=== PATIENT | male | born 1975 | race Caucasian/White ===

== ENCOUNTER 2017-06-02 21:26 | Observation (INO) ==
[2017-06-02] MEDS ORDERED: SALINE FLUSH 10ml SYRINGE IVF PRN (23:01)
--- OUTSIDE RECORDS SUMMARY | 2017-06-02 23:07 | External Medical Summary | Referral Summary ---
:1975 [facility] Address [address] [place] [address] Encounter VC Date(s): 02/01/16 - 02/01/16 [facility] [address] [place] [id number] - Discharge Diagnosis: Strain of right shoulder Discharge Disposition: 01-Home or Self Care Attending Physician: Panfilo Woodard MD Attending Physician: Provider, Immediate Care Admitting Physician: Provider, Immediate Care Vital Signs Most recent to oldest [Reference Range]: 1 Temperature Oral [35.8-37.3 degC] 36.4 degC (02/01/16 5:39 PM) Peripheral Pulse Rate [60-100 bpm] 56 bpm *LOW* (02/01/16 5:39 PM) Blood Pressure [90-140/60-90 mmHg] 98/64 mmHg (02/01/16 5:39 PM) SpO2 97 % (02/01/16 5:39 PM) Problem List No data available for this section Allergies, Adverse Reactions, Alerts No Known Medication Allergies Medications No Known Medications Results No data available for this section Immunizations No data available for this section Procedures No data available for this section Social History Social History Type Response Smoking Status Current every day smoker; Type: Cigarettes Assessment and Plan Extracted from: Title: Office Visit Note Author: Panfilo Woodard MD Date: 02/01/16 Assessment/Plan 1.Strain of right shoulder This was most likely a strain of the right shoulder possibleorpossibly a sprain of theAC joint. We will proceed with conservative treatmentas it appearsthat hisrotator cuff is intact. He was instructed to take 800 mg of ibuprofen every 8 hours and will obtain OTC. He is to use ice20 minutes on and 20 minutes off. He was instructed to continue with early mobilization exercisesandwas instructed on how to do them. He was counseled not to use a arm sling. If symptoms do not improvehe was encouraged to establish care with a PCPfor follow-up.
[2017-06-02] MEDS ORDERED: NS 1,000 ML IV SCH (23:15)
--- NOTE | 2017-06-02 23:35 | Emergency Department Report ---
General Adult HPI - General Chief complaint: Medical Emergency Stated complaint: high blood sugars Time Seen by Provider: 06/02/17 22:55 Source: patient, RN notes reviewed, old records reviewed Mode of arrival: ambulatory Limitations: no limitations - History of Present Illness HPI narrative: 41yo man presents to the ER tonight for evaluation of high blood sugar. Pt took his blood sugar tonight on a friend's meter; it read 'high'. Pt has had 6-9 months of sx of hyperglycemia (visual disturbances, excess urination, excess thirst, craving sweet foods, etc). Pt has a strong FHx of DM (some NIDDM and some IDDM); he used to take his BG intermittently, but quit 4 years ago, because the readings were always 'good'. Last evaluated by a physician >10years ago. MD complaint: Hyperglycemia Onset (ago): month(s) (6-9) - Related Data Home Medications Medication Instructions Recorded Confirmed No known Home medications [No home 06/03/17 06/03/17 meds] Allergies Allergy/AdvReac Type Severity Reaction Status Date / Time No Known Allergies Allergy Verified 06/03/17 00:15 Review of Systems All systems: reviewed and negative except as stated Constitutional: Reports: as per HPI, weakness. Denies: fever, chills, weight change, night sweats Eyes: Reports: as per HPI, vision change. Denies: eye pain, eye discharge Endocrine: Reports: as per HPI, fatigue, polydipsia, polyuria. 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 Medical History Updates: Denies - Social History Smoking status: Current every day smoker Physical Exam - Limitations Limitations: no limitations - General General appearance: alert, in no apparent distress - Normal Exams: Head:: Normocephalic without trauma Eyes:: Pupils are PERRLA w/ EOMI, No scleral icterus, irritation, or foreign bodies noted ENMT:: No facial trauma, nasal exudates, pharyngeal erythema, or exudates are noted Neck:: Full range of motion, without adenopathy Chest/Respirations:: Clear all mendiola, with good airflow, and symmetry bilaterally Cardiovascular:: Regular rate and rhythm, without murmur or gallop, Pulses 2+ all extremities, capillary refill, <2 seconds all extremities Lymphatic:: No lymphadenopathy Musculoskeletal:: No tenderness, or deformity noted Integumentary:: No rashes, hives, or bruising noted Neurological:: Patient is alert, and oriented, cranial nerves, motor/sensory/ cerebellar, exams w/o gross deficits Psychiatric:: Patient exhibits, appropriate attention Course - Consultations Consultation #1: Govind Telemed: Will admit for obs, education, and rx. Time: 01:20 Vital Signs Temperature 99.5 F 06/02/17 21:50 Pulse Rate 81 06/02/17 21:50 Respiratory Rate 18 06/02/17 21:50 Blood Pressure 129/83 06/02/17 21:50 Pulse Oximetry 96 06/02/17 21:50 Temperature 99.5 F 06/02/17 21:50 Pulse Rate 81 06/02/17 21:50 Respiratory Rate 18 06/02/17 21:50 Blood Pressure 129/83 06/02/17 21:50 Pulse Oximetry 96 06/02/17 21:50 Medical Decision Making - Differential Diagnosis DKA, HHS, Hyperglycemia, Pot[place]ia, Hyponatremia, Hyperkalemia - Medical Records Medical records reviewed: Yes: I reviewed the patient's medical records. - Lab Data Lab results reviewed: Yes: I reviewed the patient's lab results. Result diagrams: 06/02/17 23:14 06/03/17 00:34 Lab Results 06/02/17 06/02/17 06/02/17 Range/Units 22:25 23:14 23:14 WBC 8.6 (4.5-11.0) T/MM3 RBC 4.61 (4.50-5.90) M/MM3 Hgb 13.7 (13.5-17.5) GM/DL Hct 38.5 L (41-53) % MCV 83.5 (80-100) UM3 MCH 29.7 (26-34) UUG MCHC 35.6 (31-37) GM/DL RDW Std Deviation 35.0 L (36.9-50.2) FL Plt Count 323 (130-400) T/MM3 MPV 9.7 (9.4-12.4) UM3 Immature Gran % (Auto) 0.2 (0.0-0.5) % Neut % (Auto) 66.0 (33-66) % Lymph % (Auto) 24.3 (23-45) % [place] % (Auto) 8.6 (0-9.0) % Eos % (Auto) 0.7 (0-4) % Baso % (Auto) 0.2 (0-2) % Neut # (Auto) 5.7 (1.8-7.7) T/MM3 Lymph # (Auto) 2.1 (1-4.8) T/MM3 [place] # (Auto) 0.7 (0-0.8) T/MM3 Eos # (Auto) 0.1 (0-0.5) T/MM3 Baso # (Auto) 0.0 (0-0.2) T/MM3 Abs Immat Gran (auto) 0.02 (0.00-0.03) T/MM3 Turbidity (0-20) Sodium (134-144) MEQ/L Potassium (3.6-5) MEQ/L Chloride (98-107) MEQ/L Carbon Dioxide (22-30) MEQ/L Anion Gap (5-15) MEQ/L BUN (9-20) MG/DL Creatinine (0.8-1.5) mg/dL GFR Calculation BUN/Creatinine Ratio (6-26) RATIO Glucose (75-110) MG/DL Glucometer > 500 (65-110) mg/dL Calculated Osmolality (261-280) MOSM/KG Calcium (8.4-10.2) MG/DL Magnesium (1.6-2.3) MG/DL Total Bilirubin (0.20-1.30) MG/DL Icterus Index (0-7) AST (17-59) U/L ALT (1-50) U/L Alkaline Phosphatase (38-126) U/L Total Protein (6.3-8.2) g/dL Albumin (3.5-5.0) g/dL Globulin (2.4-3.6) G/DL Albumin/Globulin Ratio (1.1-2.2) RATIO Specimen Hemolysis (0-25) Ur Collection Type Urine, void-cc/notcc Urine Color Yellow (YELLOW) Urine Clarity Clear Urine pH 5.0 (5.0-8.0) Ur Specific [place] <=1.005 L (1.015-1.025) Urine Protein Negative (NEGATIVE) Urine Glucose (UA) 3+ A (NEGATIVE) Urine Ketones Negative (NEGATIVE) Urine Occult Blood Negative (NEGATIVE) Urine Nitrate Negative (NEGATIVE) Urine Bilirubin Negative (NEGATIVE) Urine Urobilinogen 0.2 (NORMAL) EU/DL Ur Leukocyte Esterase Negative (NEGATIVE) Urine RBC None seen (0-3) /HPF Urine WBC None seen (0-5) /HPF Ur Squamous Epith Cells 0-5 Urine Bacteria None seen (NEGATIVE) Ur Culture Indicated? Cult not indicated B-Hydroxybutyrate (0-0.6) MMOL/L 06/02/17 06/03/17 06/03/17 Range/Units 23:14 00:34 01:14 WBC (4.5-11.0) T/MM3 RBC (4.50-5.90) M/MM3 Hgb (13.5-17.5) GM/DL Hct (41-53) % MCV (80-100) UM3 MCH (26-34) UUG MCHC (31-37) GM/DL RDW Std Deviation (36.9-50.2) FL Plt Count (130-400) T/MM3 MPV (9.4-12.4) UM3 Immature Gran % (Auto) (0.0-0.5) % Neut % (Auto) (33-66) % Lymph % (Auto) (23-45) % [place] % (Auto) (0-9.0) % Eos % (Auto) (0-4) % Baso % (Auto) (0-2) % Neut # (Auto) (1.8-7.7) T/MM3 Lymph # (Auto) (1-4.8) T/MM3 [place] # (Auto) (0-0.8) T/MM3 Eos # (Auto) (0-0.5) T/MM3 Baso # (Auto) (0-0.2) T/MM3 Abs Immat Gran (auto) (0.00-0.03) T/MM3 Turbidity < 20 < 20 (0-20) Sodium 130 L 135 (134-144) MEQ/L Potassium 4.4 4.2 (3.6-5) MEQ/L Chloride 89 L 94 L (98-107) MEQ/L Carbon Dioxide 27 27 (22-30) MEQ/L Anion Gap 14 14 (5-15) MEQ/L BUN 21.0 H 20.0 (9-20) MG/DL Creatinine 0.6 L 0.6 L (0.8-1.5) mg/dL GFR Calculation 147 147 BUN/Creatinine Ratio 35 H 33 H (6-26) RATIO Glucose 722 H* 526 H (75-110) MG/DL Glucometer 374 (65-110) mg/dL Calculated Osmolality 289 H 287 H (261-280) MOSM/KG Calcium 9.5 9.3 (8.4-10.2) MG/DL Magnesium 2.0 (1.6-2.3) MG/DL Total Bilirubin 0.30 (0.20-1.30) MG/DL Icterus Index < 2 < 2 (0-7) AST 29 (17-59) U/L ALT 53 H (1-50) U/L Alkaline Phosphatase 144 H (38-126) U/L Total Protein 7.6 (6.3-8.2) g/dL Albumin 4.6 (3.5-5.0) g/dL Globulin 3.0 (2.4-3.6) G/DL Albumin/Globulin Ratio 1.5 (1.1-2.2) RATIO Specimen Hemolysis < 15 < 15 (0-25) Ur Collection Type Urine Color (YELLOW) Urine Clarity Urine pH (5.0-8.0) Ur Specific [place] (1.015-1.025) Urine Protein (NEGATIVE) Urine Glucose (UA) (NEGATIVE) Urine Ketones (NEGATIVE) Urine Occult Blood (NEGATIVE) Urine Nitrate (NEGATIVE) Urine Bilirubin (NEGATIVE) Urine Urobilinogen (NORMAL) EU/DL Ur Leukocyte Esterase (NEGATIVE) Urine RBC (0-3) /HPF Urine WBC (0-5) /HPF Ur Squamous Epith Cells Urine Bacteria (NEGATIVE) Ur Culture Indicated? B-Hydroxybutyrate 0.10 (0-0.6) MMOL/L - Radiology Data Radiology results reviewed: Yes: I reviewed the patient's radiology results. - EKG Data EKG #1 EKG attestation: Yes: I reviewed and interpreted this EKG. EKG shows normal: sinus rhythm, axis, intervals, QRS complexes, ST-T waves Rate: normal Interpretation: normal EKG Disposition Clinical Impression: Hyperglycemia Disposition: To OBS [facility] [place] Print Language: Zambian Condition: Improved Prescriptions: No Action No known Home medications [No home meds] 0 #0 misc Time of Disposition: 01:27 - Seen By: physician
[2017-06-02] MEDS ORDERED: POTASSIUM CHLORIDE INJ 20 MEQ in NS 1,000 ML IV SCH (23:45)
[2017-06-02] MEDS ORDERED: INSULIN REGULAR, HUMAN 100 UNIT/ML INJECTION IVP ONE (23:45)
[2017-06-02] MEDS ORDERED: INSULIN REGULAR, HUMAN 100 UNIT in NS 100 ML IV PRN (23:45)
[2017-06-03] MEDS ORDERED: GLUCOSE ORAL GEL 40% 37.5gm PO PRN (02:12)
[2017-06-03] MEDS ORDERED: ACETAMINOPHEN 325 MG TABLET PO PRN (02:12)
[2017-06-03] MEDS ORDERED: ONDANSETRON 4 MG/2 ML INJECTION IVP PRN (02:12)
[2017-06-03] MEDS ORDERED: DEXTROSE 50% SYRINGE 50ml (1 AMP) IVP PRN (02:12)
--- NOTE | 2017-06-03 02:44 | History & Physical Report ---
History of Present Illness Date: 06/03/17 Chief complaint: Hyperglycemia HPI: Mr Peng is a 41 year old male who has presented to the emergency department this evening with concerns for possible high blood sugar. He states he has multiple family members who have diabetes. He has had approximately 6 - 9 months of blurry vision, polyuria and polydipsia, and unintentional weight loss. He started checking his blood sugars on a family member's glucometer and came to the ER late this evening when readings continued to demonstrate high blood sugars. He apparently has no primary care physician. Workup in the emergency department has revealed an elevated blood sugar in the 700s. Metabolic profile shows no anion gap. After IV fluids and 8 units of regular insulin, his blood sugar is now 374 mg/dL on Accu-Chek. Unfortunately, he has no primary care physician with which to follow up. Thus, at the request of the ER provider, this patient will be placed in the hospital tonight for observational purposes, diabetes education and initiation of insulin. This patient was seen during this encounter via the use of telemedicine technology Review of Systems All systems PM: 10-point ROS was reviewed, no additional remarkable complaints except Past Medical History Medical History Updates: Denies Family History: DM in many family members Family History Updates: .. - Social History Smoking status: Current every day smoker Medications Home Medications Medication Instructions Recorded Confirmed Type No known Home medications [No home 06/03/17 06/03/17 History meds] Allergies Allergy/AdvReac Type Severity Reaction Status Date / Time No Known Allergies Allergy Verified 06/03/17 00:15 Exam Vital Signs: Temperature 99.5 F 06/02/17 21:50 Pulse Rate 80 06/02/17 23:30 Respiratory Rate 16 06/02/17 23:30 Blood Pressure 129/90 H 06/02/17 23:30 Pulse Oximetry 98 06/02/17 23:30 - Constitutional Present: no acute distress - Routine HEENT Exam Head: Present: normocephalic, atraumatic ENT: Present: mucous membranes dry - Routine Respiratory Exam Present: CTA bilaterally. Absent: accessory muscle use - Routine Cardiovascular Exam Present: RRR, no murmur - Routine Abdominal Exam Present: soft - Routine Extremities Exam Present: no edema - Routine Neurological Exam Present: alert, oriented X3 Results - Labs CBC & Chem 7: 06/02/17 23:14 06/03/17 00:34 Assessment and Plan (1) Hyperglycemia Current visit: Yes Status: Acute Assessment and Plan: Assessment New diagnosis of diabetes mellitus Mild dehydration Plan This patient will be placed under observation status to the medical floor. Will start a sliding insulin AC scale with meals, and order for 10 units of Levemir for later on tonight. He will need diabetes education. Most importantly, he will need a primary care physician to follow up with as determining an optimal insulin regimen is primarily performed on an outpatient basis. In the meantime , I will order a hemoglobin A1c and a lipid profile to follow up on. He has no home medications to reconcile. Clinical progress will be monitored, and supportive care will be provided. Changes to the aforementioned plan will be made this evening as necessary. - Physician Narrative Narrative: Date: 06/03/17 Time: 0241 Hospital Course Summary Disclaimer: The visit summary below is not to be considered part of the above Progress Note.
[2017-06-03] MEDS: NS 1,000 ML IV SCH ×2 (03:35→13:06)
[2017-06-03] MEDS: INSULIN ASPART 100unit/ml INJECTION SQ PRN ×2 (06:47→11:54)
--- NOTE | 2017-06-03 08:01 | XRay Report ---
Indication: Hyperglycemia PROCEDURE: XR chest 1V: Encounter: Initial Comparison: None FINDINGS: The lungs are clear. There is no abnormal airspace opacity, pleural effusion or pneumothorax identified. The heart size, pulmonary vasculature and mediastinum are within normal limits. No significant skeletal abnormality is seen. IMPRESSION: No acute cardiopulmonary abnormality. .
[2017-06-03] MEDS: METFORMIN 500 MG TABLET PO SCH ×2 (10:19→17:40)
--- NOTE | 2017-06-03 11:35 | History & Physical Report ---
History of Present Illness Date: 06/03/17 Chief complaint: elevated BS HPI: Mr Peng is a 41 year old male who has presented to the emergency department this evening with concerns for possible high blood sugar. He states he has multiple family members who have diabetes. He has had approximately 6 - 9 months of blurry vision, polyuria and polydipsia, and unintentional weight loss. He started checking his blood sugars on a family member's glucometer and came to the ER late this evening when readings continued to demonstrate high blood sugars. He apparently has no primary care physician. Workup in the emergency department has revealed an elevated blood sugar in the 700s. Metabolic profile shows no anion gap. After IV fluids and 8 units of regular insulin, his blood sugar is now 374 mg/dL on Accu-Chek. Unfortunately, he has no primary care physician with which to follow up. Thus, at the request of the ER provider, this patient will be placed in the hospital tonight for observational purposes, diabetes education and initiation of insulin. (per telemed doc documentation at admission) Patient was seen this morning. He is feeling fine other than urinary frequency. He has suspected he has diabetes over the last 6 months. States he' s had a 30-40 pound weight loss over the last 4 months. No other health problems that he is aware of. 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 Father and several siblings and cousins have diabetes. No significant history of cardiac disease. Family History Updates: reviewed - Social History Smoking status: Current some day smoker (states he ""quit smoking a month and a half ago", but reports he has smoked 6-7 cigarettes over the past 1.5 months) Substance use type: marijuana (several times a week), methamphetamine (last use was 6 days ago. Prior to that 3 weeks ago. States he is "quitting" now. 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 Previous to hospitalization he was living in [place].) Social history: Patient is single. Has 4 children - 2 live in [place], 1 in [place] and 1 with pt' s mother locally Patient has no primary care provider. Medications Home Medications Medication Instructions Recorded Confirmed Type No known Home medications [No home 06/03/17 06/03/17 History meds] Allergies Allergy/AdvReac Type Severity Reaction Status Date / Time No Known Allergies Allergy Verified 06/03/17 00:15 Exam Vital Signs: Temperature 97.7 F 06/03/17 07:49 Pulse Rate 62 06/03/17 08:00 Respiratory Rate 18 06/03/17 07:49 Blood Pressure 106/67 06/03/17 07:49 Pulse Oximetry 100 06/03/17 07:49 Height/Weight/BMI: Height 1.73 m Weight 78.3 kg - Constitutional Present: no acute distress, well nourished, well developed - Routine HEENT Exam Head: Present: normocephalic, atraumatic Eye: Present: EOMI, PERRL ENT: Present: mucous membranes moist, oropharynx clear Comments: Tongue piercing - Routine Neck Exam Present: supple. Absent: lymphadenopathy, thyromegaly - Routine Respiratory Exam Present: CTA bilaterally. Absent: wheezes - Routine Cardiovascular Exam Present: RRR, no murmur - Routine Abdominal Exam Present: soft, normoactive bowel sounds. Absent: tenderness, distended - Routine Extremities Exam Present: no edema, normal capillary refill Comments: Small corn at base of right fifth digit. Callused wound on the left lateral foot (distal fifth metatarsal) - Routine Skin Exam Present: dry, warm Comments: Dry skin, tattoos, lesions as documented under "extremity exam" - Routine Neurological Exam Present: alert, oriented X3, CN II-XII intact, sensory deficit (feet) - Routine Psychiatric Exam Present: normal affect, cooperative Results - Labs CBC & Chem 7: 06/03/17 08:47 06/03/17 00:34 Labs: Laboratory Tests 03/16/18 08:47 Triglycerides 104 Cholesterol 197 LDL Cholesterol, Calc 128.2 VLDL Cholesterol 20.8 HDL Cholesterol 48 Cholesterol/HDL Ratio 4.1 Laboratory Tests 06/02/17 23:14 AST 29 ALT 53 H Alkaline Phosphatase 144 H Laboratory Tests 06/03/17 08:47 Hemoglobin A1c 14.6 H Laboratory Tests 06/02/17 23:14 Ur Collection Type Urine, void-cc/notcc Urine Color Yellow Urine Clarity Clear Urine pH 5.0 Ur Specific [place] <=1.005 L Urine Protein Negative Urine Glucose (UA) 3+ A Urine Ketones Negative Urine Occult Blood Negative Urine Nitrate Negative Urine Bilirubin Negative Urine Urobilinogen 0.2 Ur Leukocyte Esterase Negative Urine RBC None seen Urine WBC None seen Ur Squamous Epith Cells 0-5 - Imaging and Cardiology Chest x-ray Additional comments: Date of Exam: 06/02/17 Indication: Hyperglycemia PROCEDURE: XR chest 1V: FINDINGS: The lungs are clear. There is no abnormal airspace opacity, pleural effusion or pneumothorax identified. The heart size, pulmonary vasculature and mediastinum are within normal limits. No significant skeletal abnormality is seen. IMPRESSION: No acute cardiopulmonary abnormality. Assessment and Plan (1) Type II diabetes mellitus Current visit: Yes Status: Acute (2) Hyperglycemia Current visit: Yes Assessment and Plan: Assessment New diagnosis of Type 2 diabetes mellitus (A1c 14.6 ) Mild dehydration-POA Non-healing diabetic foot ulcer Hyponatremia-POA (resolved) Plan Patient has been admitted to observation status under the care of the hospitalist service, Dr. Simpson attending. He had 10 units of Levemir last evening. He is currently on AC sliding scale insulin and had his first metformin dose this morning. He had 5 units NovoLog prior to breakfast, and will receive 4 units based on the sliding scale prior to lunch. Will add another 4 U to this dose. printer apprentice has been consulted. Labs stable. Normal saline running at 100 mL per hour. SCDs for DVT prophylaxis. Patient wishes to be a full code. Will plan to DC on metformin w/ close OP f-u if pt is doing well. Case management will need to assist in establishing patient with PCP for outpatient follow-up. DVT Prophylaxis: SCD's Resuscitation Status: Full Code - Physician Narrative Physician: Murray Simpson MD Narrative: Date: 06/03/17 Time: 1515 Have independently interviewed and examined pt. Chart reviewed. Case discussed with CM and my PA. Care plan developed with my supervision; agree with above. 41 y/o male presents to ED for evaluation of increasing urination, thirst, and blurred vision. Significant diabetes in family. Reports 30# weight loss-some intentional, some unintentional. Does like to eat candy/sweets. Evaluated in ED. Blood sugars markedly elevated. Not acidotic or showing signs of DKA. Placed in OBS to initiate treatment of his newly diagnoses DM. Lungs: clear CV: regular AB: soft nt/nd MSE: awake alert appropriate Plan: OBS. Diabetic education/dietary instruction. IVF to maintain hydration. Start Metformin to help glycemic control. Stress the importance of outpatient diabetic management. Work on pt [facility] with [facility]. Hospital Course Summary Disclaimer: The visit summary below is not to be considered part of the above Progress Note. Hospital Course: 06/03/17 - Hospital admission Patient has been admitted to observation status under the care of the hospitalist service, Dr. Simpson attending. He had 10 units of Levemir last evening. He is currently on AC sliding scale insulin and had his first metformin dose this morning. He had 5 units NovoLog prior to breakfast, and will receive 4 units based on the sliding scale prior to lunch. Will add another 4 U to this dose. printer apprentice has been consulted. Labs stable. Normal saline running at 100 mL per hour. SCDs for DVT prophylaxis. Patient wishes to be a full code. Will plan to DC on metformin w/ close OP f-u if pt is doing well. Case management will need to assist in establishing patient with PCP for outpatient follow-up.
[2017-06-03] MEDS ORDERED: INSULIN ASPART 100unit/ml INJECTION SQ ONE (12:07)
[2017-06-03 15:48] VITALS: BP 127/84; PULSE 66; RESP 16; TEMP 97.3; O2SAT 98
[2017-06-03] MEDS ORDERED: PNEUMOCOCCAL 13 VACCINE 0.5ml INJECTION IM ONE (15:51)
[2017-06-03] MEDS ORDERED: INFLUENZA VAC QIV 2017-18 (Fluarix*)(>=3yo) 0.5ml IM ONE (15:51)
--- NOTE | 2017-06-03 16:28 | Discharge Summary ---
Discharge Information Date of admission: 06/03/17 01:33 Anticipated date of discharge: 06/03/17 Attending Physician: Murray Simpson MD Primary care physician: [facility]. Consults: water tender - Discharge Diagnosis (1) Type II diabetes mellitus Status: Acute New diagnosis of Type 2 diabetes mellitus (A1c 14.6 ) Mild dehydration-POA Non-healing diabetic foot ulcer Hyponatremia-POA (resolved) - Laboratory Labs: Admission labs 06/02/17 06/02/17 23:14 23:14 WBC 8.6 RBC 4.61 Hgb 13.7 Hct 38.5 L Plt Count 323 Sodium 130 L Potassium 4.4 Chloride 89 L Carbon Dioxide 27 Anion Gap 14 BUN 21.0 H Creatinine 0.6 L Glucose 722 H* AST 29 ALT 53 H Alkaline Phosphatase 144 H Lipids 06/03/17 06/03/17 08:47 08:47 Hemoglobin A1c 14.6 H Triglycerides 104 Cholesterol 197 LDL Cholesterol, Calc 128.2 VLDL Cholesterol 20.8 HDL Cholesterol 48 Cholesterol/HDL Ratio 4.1 Dismissal labs 06/03/17 06/03/17 00:34 08:47 WBC 7.9 RBC 4.50 Hgb 13.2 L Hct 38.0 L Plt Count 288 Sodium 135 Potassium 4.2 Chloride 94 L Carbon Dioxide 27 Anion Gap 14 BUN 20.0 Creatinine 0.6 L Glucose 526 H Urinalysis 06/02/17 23:14 Ur Collection Type Urine, void-cc/notcc Urine Color Yellow Urine Clarity Clear Urine pH 5.0 Ur Specific Alpine <=1.005 L Urine Protein Negative Urine Glucose (UA) 3+ A Urine Ketones Negative Urine Occult Blood Negative Urine Nitrate Negative Urine Bilirubin Negative Urine Urobilinogen 0.2 Ur Leukocyte Esterase Negative Urine RBC None seen Urine WBC None seen Ur Squamous Epith Cells 0-5 Urine Bacteria None seen - Radiology Radiology: Date of Exam: 06/02/17 Indication: Hyperglycemia PROCEDURE: XR chest 1V: FINDINGS: The lungs are clear. There is no abnormal airspace opacity,pleural effusion or pneumothorax identified. The heart size, pulmonary vasculature and mediastinum are within normal limits. No significant skeletal abnormality is seen. IMPRESSION: No acute cardiopulmonary abnormality. History of Present Illness HPI: Mr Peng is a 41 year old male who has presented to the emergency department this evening with concerns for possible high blood sugar. He states he has multiple family members who have diabetes. He has had approximately 6 - 9 months of blurry vision, polyuria and polydipsia, and unintentional weight loss. He started checking his blood sugars on a family member's glucometer and came to the ER late this evening when readings continued to demonstrate high blood sugars. He apparently has no primary care physician. Workup in the emergency department has revealed an elevated blood sugar in the 700s. Metabolic profile shows no anion gap. After IV fluids and 8 units of regular insulin, his blood sugar is now 374 mg/dL on Accu-Chek. Unfortunately, he has no primary care physician with which to follow up. Thus, at the request of the ER provider, this patient will be placed in the hospital tonight for observational purposes, diabetes education and initiation of insulin. (per telemed doc documentation at admission) Patient was seen this morning. He is feeling fine other than urinary frequency. He has suspected he has diabetes over the last 6 months. States he' s had a 30-40 pound weight loss over the last 4 months. No other health problems that he is aware of. Objective Vital signs: See progress note dated today for exam. Height/Weight/BMI: Height 1.73 m Weight 78.3 kg Hospital Course This is a general summary of the patient's hospital course. For more details refer to the complete medical record. Hospital course: Patient admitted for observation from the ER given his new diagnosis of diabetes. He was given 10 units of Levemir on evening of admission. Next morning he was started on metformin 500 mg twice a day. He was given 5 units NovoLog before breakfast. Prior to lunch his blood sugar had come down to 346. He was given another 8 units prior to lunch. At time of dismissal at 1700, blood sugar is down to 269. Patient met with the tent finisher and he was supplied with a glucometer. Case management assisted patient with resources for follow-up care. He was dismissed on metformin 500 mg twice a day with instructions to check blood sugars routinely and follow-up at [facility] early next week. Time spent with patient: discharge greater than 30 minutes Resuscitation Status: Full Code Discharge Plan - Discharge Disposition Discharge Date: 06/03/17 Disposition: Discharged Home, Self-Care *Condition: Improved Reason For Visit (Visit label in EMR): hyperglycemia - Discharge Medications *Discharge Medications: New Metformin [Glucophage] 500 mg PO BIDWM #60 tab - Discharge Packet/Instructions *Diet: 2000 calorie diabetic diet *Activity: As tolerated *Pain Management/Treatment: Continue prior home pain medications *Wound Care: N/A *Expected Signs/Symptoms: Improvement of blood sugars *Notify Physician if: Temp >100.4. Problems with glycemic control. *[facility] *After Business Hours Contact: Call [facility] and have your care provider contacted *Pending Lab/Results: No Pending Lab - Referrals/Follow Up *Referrals/Follow Up: Harsh Boogie DO [Physician] - 06/06/17 9:30 am (Needs to establish PCP care at [facility] in [address] BOOGIE ON TuesdayMay AT 9:30 A.M. BRING A PHOTO I.D. INSURANCE PAPERS AND DISMISSAL PAPERS FROM HOSPITAL..) - Patient Handouts - Dismissal Complete Discharge Instructions are:: Complete Physician Narrative - Narrative Physician: Murray Simpson MD Attestation Narrative: Date: 06/03/17 Time: 162 I have independently interviewed and examined patient prior to discharge. See H& P from today for details. Medically stable for discharge to home.
[2017-06-03] MEDS ORDERED: INSULIN DETEMIR 100unit/ml INJECTION SQ SCH (20:00)
== END 2017-06-03 18:20 | disposition home or self-care (01) ==
LOC: ED 21:26 → MED 21:26 → SUATTDRO 06-03 01:33 → MED 06-03 02:30
PROVIDERS: ADMIT Hospitalist; ATTEND Hospitalist